=== PATIENT | male | born 1955 | race Caucasian/White ===

== ENCOUNTER 2018-01-19 05:55 | Day surgery (SDC) | payer OTHER ==
[~2018-01-19 05:55] MED LIST: ASA81 MG; GABAPENTIN300 MG; IBUPROFEN600 MG PO; LEVO-T75 MCG PO; METOPROLOL SUCC50 MG; PACERONE200 MG; PLAVIX75 MG; SINGULAIR 10MG10 MG PO; TERAZOSIN HCL1 M1 PO
== END 2018-01-19 10:15 | disposition home or self-care (01) ==
LOC: CIR.AMB 05:55
DX: M65.312 Trigger thumb, left thumb (principal)